=== PATIENT | female | born 1995 | race American Indian/Alaskan Native ===

== ENCOUNTER 2021-08-21 21:19 | Emergency (ER) | payer MEDICAID | END 2021-08-22 01:24 | LOC: ED 21:19 | DX: N89.8 Other specified noninflammatory disorders of vagina (principal); Z53.21 Procedure and treatment not carried out due to patient leaving prior to being seen by health care provider ==

== ENCOUNTER 2021-08-21 23:00 | Emergency (ER) | payer MEDICAID ==
[2021-08-21 23:41] VITALS: BP 126/86
[2021-08-21] MEDS ORDERED: LIDOCAINE-MPF (1%) 10 MG/1 ML VIAL 5 ML INFILTRATI ONE (23:55)
--- NOTE | 2021-08-22 00:07 | Emergency Department Report ---
ED Female HPI - General Chief complaint: Urogenital-Female Stated complaint: VAGINAL IRRITATION/ODOR Time Seen by Provider: 08/21/21 23:46 Source: patient Mode of arrival: Ambulatory Limitations: No Limitations - History of Present Illness Initial comments: Patient is a 26-year-old female presents emergency room complaints of vaginal irritation that began 2 days ago. She has associated vaginal itching and burning. She states that she has a discharge which has a fishy odor. Patient states that she did use a new soap and was not sure if that caused her symptoms. She states that she also began having sexual intercourse with her baby's father and states that she had unprotected intercourse and is concerned for STDs. She denies any dysuria, fever, nausea, vomiting, diarrhea, abdominal pain. No past medical history. Allergy to penicillin - Related Data Previous Rx's Medication Instructions Recorded Last Taken Type Doxycycline Hyclate [Doxycycline 100 mg PO BID 7 Days #14 tab 08/22/21 Unknown Rx Hyclate TAB] Fluconazole [Diflucan TAB] 150 mg PO ONCE 1 Days #3 tablet 08/22/21 Unknown Rx metroNIDAZOLE [Flagyl] 500 mg PO BID 7 Days #14 tab 08/22/21 Unknown Rx Allergies Allergy/AdvReac Type Severity Reaction Status Date / Time Penicillins Allergy Intermediate Itching Verified 08/21/21 23:43 ED Review of Systems ROS: Stated complaint: VAGINAL IRRITATION/ODOR Other details as noted in HPI Comment: All other systems reviewed and negative ED Past Medical Hx - Past Medical History Previous Medical History?: No - Surgical History Past Surgical History?: No - Medications Home Medications: Home Medications Medication Instructions Recorded Confirmed Last Taken Type Doxycycline Hyclate [Doxycycline 100 mg PO BID 7 Days #14 tab 08/22/21 Unknown Rx Hyclate TAB] Fluconazole [Diflucan TAB] 150 mg PO ONCE 1 Days #3 tablet 08/22/21 Unknown Rx metroNIDAZOLE [Flagyl] 500 mg PO BID 7 Days #14 tab 08/22/21 Unknown Rx ED Physical Exam - General Limitations: No Limitations General appearance: alert, in no apparent distress - Head Head exam: Present: atraumatic, normocephalic - Eye Eye exam: Present: normal appearance - ENT ENT exam: Present: mucous membranes moist - Respiratory Respiratory exam: Present: normal lung sounds bilaterally. Absent: respiratory distress, wheezes, rales, rhonchi, stridor, chest wall tenderness, accessory muscle use, decreased breath sounds, prolonged expiratory - Cardiovascular Cardiovascular Exam: Present: regular rate, normal rhythm, normal heart sounds. Absent: systolic murmur, diastolic murmur, rubs, gallop - GI/Abdominal GI/Abdominal exam: Present: soft, normal bowel sounds. Absent: distended, tenderness, guarding, rebound, rigid - Neurological Exam Neurological exam: Present: alert, oriented X3 - Psychiatric Psychiatric exam: Present: normal affect, normal mood - Skin Skin exam: Present: warm, dry, intact ED Course Vital Signs 08/21/21 23:38 Temperature 98.0 F Pulse Rate 76 Respiratory 15 Rate Blood Pressure 126/86 [Left] O2 Sat by Pulse 100 Oximetry ED Medical Decision Making - Medical Decision Making Patient is a 26-year-old female presents emergency room complaints of vaginal irritation that began 2 days ago. She has associated vaginal itching and burning. She states that she has a discharge which has a fishy odor. Patient states that she did use a new soap and was not sure if that caused her symptoms. She states that she also began having sexual intercourse with her baby's father and states that she had unprotected intercourse and is concerned for STDs. She denies any dysuria, fever, nausea, vomiting, diarrhea, abdominal pain. No past medical history. Allergy to penicillin. Vitals are normal. No abdominal tenderness on exam. Urine is negative. UA is stable. Patient given ceftriaxone IM on the emergency department. Patient given prescription for medication. G/C sent from patient's urine and advised patient she will need to follow-up with medical records in 5 days for results of these test but she will be appropriately treated for these. advised pt Please take medication as prescribed. Please take antibiotics with food. Follow-up with the clinic or the health department to receive a full STD panel. Please have any partner tested and treated as well. Avoid sexual intercourse. Return to emergency room for any new or worsening symptoms. Critical care attestation.: If time is entered above; I have spent that time in minutes in the direct care of this critically ill patient, excluding procedure time. ED Disposition Clinical Impression: Concern about STD in female without diagnosis Vaginitis Qualifiers: Chronicity: acute Qualified Code(s): N76.0 - Acute vaginitis Disposition: HOME / SELF CARE / HOMELESS Is pt being admited?: No Does the pt Need Aspirin: No Condition: Stable Instructions: Vaginitis, [id number], Safe Sex Additional Instructions: Please take medication as prescribed. Please take antibiotics with food. Follow-up with the clinic or the health department to receive a full STD panel. Please have any partner tested and treated as well. Avoid sexual intercourse. Return to emergency room for any new or worsening symptoms. walk in clinic STD testing: [email or web address] Address: [address] [place] [id number] Prescriptions: Fluconazole [Diflucan TAB] 150 mg PO ONCE 1 Days #3 tablet Doxycycline Hyclate [Doxycycline Hyclate TAB] 100 mg PO BID 7 Days #14 tab metroNIDAZOLE [Flagyl] 500 mg PO BID 7 Days #14 tab Referrals: [facility] [Outside] - 3-5 Days [facility] [Provider Group] - 3-5 Days Time of Disposition: 01:21 Print Language: SAO TOMEAN
[2021-08-22 01:18] LABS: Bacteria,Urine 1+ /HPF (Negative); Bilirubin,Urine NEG (Negative); Blood,Urine NEG (Negative); Color,Urine Yellow (Yellow); HCG Qualitative,Urine Negative (Negative); Mucus,Urine 3+ /HPF; Urobilinogen,Urine < 2.0 mg/dL (<2.0)
== END 2021-08-22 02:08 | disposition home or self-care (01) ==
LOC: ED 23:00
DX: N76.0 Acute vaginitis (principal); Z20.2 Contact with and (suspected) exposure to infections with a predominantly sexual mode of transmission
CPT/HCPCS: 81001; 81025; 87086; 87591; 96372; 99283; J0696